=== PATIENT | male | born 1960 | race African-American/Black ===

== ENCOUNTER → 2019-01-14 | Outpatient (CLI) | payer BC ==
[2015-01-26 10:07] VITALS: BP 129/89
[~2019-01-14] MED LIST: ALBU2.5V8 IH; BUDE10.2 IH; CYCL10TA2 PO; DOCU-109 PO; GLIM4TAB4 PO; IBUP-1027 PO; IOHEXOL 180 MG/ML 10 ML VIAL. ONE; METF500T16 PO; OXYC-316 PO; PRAV40TA2 PO; RAMI10CA53 PO; SITA100T PO; methylPREDNISolone ACETATE 40 MG/ML VIAL. ONE; methylPREDNISolone ACETATE 80 MG/ML VIAL. ONE
--- NOTE | 2019-01-14 21:18 | PAIN ---
DATE OF SERVICE: 01/14/2019 INITIAL CONSULTATION FOR PAIN CLINIC CHIEF COMPLAINT: Low back and right lower extremity pain. HISTORY OF PRESENT ILLNESS: This is a 58-year-old male who presents with history of pain in the low back, right lower extremity since about August, about 5 months, not a result of any specific injury or action he is aware of, but he had some tree limbs I think he was cleaning up in his backyard, did a lot of extra work around the house, lifting and moving, bending and has had significant pain in the low back, in the right gluteus and then mostly in the right anterior thigh, which was new for him. The patient did have surgery on his lumbar spine in 2003 and then again in 2014. He reports the pain is much different than that now and anterior thighs on the right side, was on the left side at that time. The patient reports the pain is constant, sharp, throbbing, stabbing with numbness and tingling into the right lower extremity to the medial knee and medial lower leg as well. The patient reported it awakens him from sleep at least 2-3 times a night, does not affect his bowel or bladder control, but does affect his ability to walk and work as well. The patient takes Motrin, have decreased the pain significantly by about 90% for about 5-6 hours. The patient reports he has had physical therapies, he has tried chiropractic treatment exercises currently doing, but nothing recently. The patient describes the pain as constant, throbbing with numbness. The patient rates his disability from 0-10, 10 being the worst, is a 7 with family home responsibilities and sexual behavior, 9 with recreation, 6 with social activity and self-care, 5 with occupational activities and 3 with life support activities. The patient did have a MRI scan of the lumbar spine showing some significant broad-based disk protrusion at L5-S1 without impingement on the canal, broad-based disk protrusion at L4-L5 as well as and broad-based protrusion at right paracentral protrusion at L3-L4 tapering the canal to 7 mm with posterior lymphomatosis, disk extending into the right foramina causing moderate to severe right foraminal stenosis, abutting the exiting right L3 nerve root. PAST MEDICAL HISTORY: Significant for hypertension, diabetes, obesity, asthma. PREVIOUS SURGERY: Include lumbar decompression in 2003, as well as 2014 and a hiatal hernia repair in 1993. CURRENT MEDICATIONS: Include Tylenol and ibuprofen. SOCIAL HISTORY: The patient drinks alcohol maybe 2 drinks a week at the most. Does not smoke, does not use any illegal, illicit or recreational drugs. 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 FAMILY HISTORY: Significant for diabetes. REVIEW OF SYSTEMS: The patient's review of systems is positive for those items mentioned in history of present illness. All systems reviewed and otherwise negative. It is complete, full and well documented on the patient's chart. PHYSICAL EXAMINATION: VITAL SIGNS: The patient's blood pressure is 149/99, pulse is 87, respirations 18, temperature is 98.8 degrees Fahrenheit, height 6 feet 1 inch and weight 345 pounds. GENERAL: The patient is awake, alert, oriented, appropriate, very pleasant demeanor. HEENT: Head is normocephalic, atraumatic. Extraocular movements are intact and symmetrical. Oral cavity: Mucous membranes moist and pink. Dentition is intact. NECK: Shows anterior throat supple without palpable lymphadenopathy noted. Swallow reflex symmetrical. CHEST: Shows normal on inspection. Breath sounds clear to auscultation bilaterally. HEART: Shows S1, S2 clear. No murmurs auscultated. ABDOMEN: Soft, nontender, nondistended. No palpable organomegaly is noted. No rebound or guarding demonstrated. BACK: Shows spine grossly in the midline. Normal appearing thoracic kyphosis and some minor flattening of lumbar lordotic curvature with well-healed surgical scar noted in the lumbar distribution. Lumbar paraspinous muscle shows symmetrical on inspection, on palpation shows some moderate tenderness diffusely bilaterally going diffusely without radiation. The patient has good rotational motion of lumbar spine, both laterally as well as extension and flexion. No tenderness over the sacrum or sacroiliac regions or the spinous processes. EXTREMITIES: Lower extremities show deep tendon reflexes at 1+ in the patellar and tendo-calcaneus tendons. Motor exam is strong with approximately 4 on a scale of 5 in the right and 5/5 on the left dorsiflexion, extension, quadriceps and hamstring flexion. Peripheral pulses are 1+ posterior tibia. No peripheral edema is noted bilaterally. Straight leg raise noted to be positive on the right at about 35 degrees, but negative on the left. The patient will stand, stand on his toes without difficulty or loss of balance. The patient is not using any assistive devices to ambulate and does appear to favor the right lower extremity slightly with favoring it with favoring limp. The patient's skin shows warm and dry, good turgor. No edema. No sores, rashes or bruising throughout. IMPRESSION: 1. This is a 58-year-old male with long history of low back pain, worse over the past 5 months and status post 2 previous lumbar surgeries with radicular pain now in the right lower extremity in L3-L4 dermatomal distribution. 2. Hypertension. 3. Diabetes. 4. Obesity. PLAN: Options were discussed with the patient including conservative medical management, physical therapies, and interventional techniques. We would like to pursue interventional techniques. He has done well with these in the past. We discussed a lumbar epidural steroid injection using description as well as anatomical models to describe the procedure. Risks were then discussed including, but not limited to bleeding, infection, possibility of epidural hematoma, subsequent neurological compromise, dural puncture, headaches, spinal cord and/or nerve damage, side effects of steroid medication and poor results regarding pain control. The patient understands and wished to proceed. The patient will return to clinic in approximately 2 weeks for followup. He was counseled on return appointment, activity level and side effects to be aware of. DIAGNOSES: Lumbar radiculopathy with lumbar degenerative disk disease and lumbar spinal stenosis and lumbar herniated disk. PROCEDURE: Lumbar epidural steroid injection, translaminar approach at the L3-L4 level using C-arm fluoroscopic guidance under sterile prep and drape using local anesthetic. MEDICATION INJECTED: A total of 120 mg Depo-Medrol plus 10 mL of preservative-free normal saline and 2 mL of contrast. CONDITION AT DISCHARGE: Stable. The patient tolerated procedure well, had no complications. ALESSANDRO GREGG MD DR: CECE/vanna JOB#: [id number] / [id number] Dwight Silva MD
== END ==
LOC: PNCL 08:53
PROVIDERS: ATTEND Anesthesiology
DX: M51.16 Intervertebral disc disorders with radiculopathy, lumbar region (principal); M48.061 Spinal stenosis, lumbar region without neurogenic claudication; I10 Essential (primary) hypertension; E11.9 Type 2 diabetes mellitus without complications; E66.9 Obesity, unspecified; J45.909 Unspecified asthma, uncomplicated; Z98.890 Other specified postprocedural states; Z72.89 Other problems related to lifestyle; Z79.84 Long term (current) use of oral hypoglycemic drugs
CPT/HCPCS: 62323; J1030; J1040; Q9965

== ENCOUNTER → 2019-01-28 | Outpatient (CLI) | payer BC ==
[2015-01-26 10:07] VITALS: BP 129/89
[~2019-01-28] MED LIST changes: -IOHEXOL 180 MG/ML 10 ML VIAL. ONE; -methylPREDNISolone ACETATE 40 MG/ML VIAL. ONE; -methylPREDNISolone ACETATE 80 MG/ML VIAL. ONE
--- NOTE | 2019-01-28 15:49 | PAIN ---
DATE OF SERVICE: 01/28/2019 PROGRESS NOTE FOR PAIN CLINIC DIAGNOSES: Lumbar radiculopathy with lumbar degenerative disk disease, lumbar spinal stenosis, lumbar herniated disk, and post-lumbar laminectomy syndrome. HISTORY OF PRESENT ILLNESS: The patient is a 58-year-old male who returns for followup status post lumbar epidural steroid injection x 1. The patient reports about 95% improvement in his low back and right lower extremity pain. The patient reports the pain is almost completely gone. It is completely gone out of his leg and some minor pain in the posterior hip on the right side and occasionally on the left side. The patient reports that he has been increasing his activity with greater ease and comfort, walking greater distances, doing work activities, household activities, traveling, able to sleep without difficulty. He is able to get up out of bed quickly, changing positions without difficulty and is very pleased with his progress. The patient reports the pain is stable. He is doing quite well. The patient reports it is a dull ache in the low back and hip, but not into the leg anymore. The patient reports his pain at its worst in the past week is 2, 1 on average, 1 at its least and is a 1/10 today. The patient reports no new motor or sensory deficits, no new bowel or bladder incontinence or other complaints. He is very pleased with his progress. PHYSICAL EXAMINATION: VITAL SIGNS: The patient's blood pressure is 133/83, pulse 88, respirations 18, temperature is 98.6 degrees Fahrenheit, height is 6 feet 1 inch, weight is 336 pounds. GENERAL: The patient is awake, alert, oriented, appropriate, very pleasant demeanor. HEENT: Shows normocephalic, atraumatic. Extraocular movements are intact and symmetrical. Oral cavity: Mucous membranes moist and pink. Dentition is intact. NECK: Shows anterior throat supple without palpable lymphadenopathy noted. Swallow reflex symmetrical. CHEST: Shows normal on inspection. Breath sounds are clear bilaterally. HEART: Shows S1, S2 clear. No murmurs auscultated. ABDOMEN: Soft, nontender, nondistended. BACK: Shows spine grossly in the midline. Normal appearing thoracic kyphosis and lumbar lordotic curvature slightly flattened. Lumbar paraspinous muscle shows symmetrical on inspection, on palpation shows some moderate tenderness diffusely bilaterally going diffusely without radiation. The patient has good rotational motion of lumbar spine without difficulty or pain reported. EXTREMITIES: Lower extremities show deep tendon reflexes 1+ patellar and tendo calcaneus tendons. Motor exam is approximately 4 on a scale of 5 right dorsiflexion, extension, 5/5 on the left. Peripheral pulses are 1+ posterior tibia. No peripheral edema is noted. Options were discussed with the patient. The patient's old chart was reviewed as his current medication regimen updated. Current review of systems updated today as well. We will hold on any further injections at this time by the patient's choice as he is doing quite a bit better, encouraged him to increase his activity as tolerated, also doing strengthening and stretching exercises as instructed. The patient will follow up at this time on as needed basis. ALESSANDRO GREGG MD DR: CECE/vanna JOB#: [id number] / [id number]
== END | disposition home or self-care (01) ==
LOC: PNCL 08:32
PROVIDERS: ATTEND Anesthesiology
DX: M51.16 Intervertebral disc disorders with radiculopathy, lumbar region (principal); M48.061 Spinal stenosis, lumbar region without neurogenic claudication; M96.1 Postlaminectomy syndrome, not elsewhere classified
CPT/HCPCS: G0463

== ENCOUNTER → 2019-03-10 | Outpatient (CLI) | payer BC ==
[2015-01-26 10:07] VITALS: BP 129/89
[~2019-03-10] MED LIST changes: +IOHEXOL 180 MG/ML 10 ML VIAL. ONE; +methylPREDNISolone ACETATE 40 MG/ML VIAL. ONE; +methylPREDNISolone ACETATE 80 MG/ML VIAL. ONE
--- NOTE | 2019-03-10 14:29 | PAIN ---
DATE OF SERVICE: 03/10/2019 PROGRESS NOTE FOR PAIN CLINIC DIAGNOSES: Lumbar radiculopathy with lumbar degenerative disk disease, lumbar spinal stenosis, post-lumbar laminectomy syndrome and lumbar herniated disk. HISTORY OF PRESENT ILLNESS: The patient is a 58-year-old male who returns for followup status post lumbar epidural steroid injection x 1, which was on 01/14/2019. The patient did very well with this with about a 95% improvement. The pain has been returning now. He has been doing increased work at home, doing some remodeling activities inside the home as well as some lifting, painting, decorating as well. The patient reports the pain is returning now in the low back, right leg and anterior thigh. The patient reports a 6-7 on a scale of 10 at its worst, 6 on average, 6 at its least and is a 6 today. The patient reports it is aching and dull in the back and radiating into the right anterior thigh, medial thigh, medial knee on the right side. Again worse with walking, standing, changing positions, better with sitting or lying down, does not awaken him from sleep at night. No new motor or sensory deficits, no new bowel or bladder incontinence or other complaints. PHYSICAL EXAMINATION: VITAL SIGNS: The patient's blood pressure 164/90, pulse 91, respirations 18, temperature 98.8 degrees Fahrenheit, height is 6 feet 1 inch, weight is 341 pounds. GENERAL: The patient is awake, alert, oriented, appropriate, very pleasant demeanor. HEENT: Shows normocephalic, atraumatic. Extraocular movements are intact and symmetrical. Oral cavity; mucous membranes moist and pink. Dentition is intact. NECK: Shows anterior throat supple without palpable lymphadenopathy noted. Swallow reflex is symmetrical. CHEST: Shows normal on inspection. Breath sounds clear bilaterally. HEART: Shows S1, S2 clear. No murmurs auscultated. ABDOMEN: Soft, nontender, nondistended. No palpable organomegaly is noted. No rebound or guarding demonstrated. BACK: Shows spine grossly in the midline. Normal appearing thoracic kyphosis, some minor flattening of lumbar lordotic curvature with well-healed surgical scar noted in the midline. Lumbar paraspinous muscle shows symmetrical on inspection, on palpation shows some moderate tenderness diffusely bilaterally, but only diffusely without significant radiation. EXTREMITIES: The patient's lower extremities show deep tendon reflexes 1+ in the patellar and tendo calcaneus tendons. Motor exam is approximately 4 on a scale of 5 with right dorsiflexion, extension, 5/5 on the left. Peripheral pulses are 1+ posterior tibia. No peripheral edema is noted bilaterally. Options were discussed with the patient. The patient's old chart was reviewed as his current medication regimen updated. Current review of systems updated today as well. We will proceed with a second in a series of lumbar epidural steroid injection today with fluoroscopic guidance. Risks were again discussed including, but not limited to bleeding, infection, possibility of epidural hematoma, subsequent neurologic compromise, dural puncture, headaches, spinal cord and/or nerve damage, side effects of steroid medication and poor results regarding pain control. The patient understands and wished to proceed. The patient will return to clinic in approximately 2 weeks for followup. He was counseled on return appointment, activity level and side effects to be aware of. DIAGNOSES: Lumbar radiculopathy with lumbar degenerative disk disease, lumbar spinal stenosis, lumbar herniated disk with lumbar post-laminectomy syndrome. PROCEDURE: Lumbar epidural steroid injection, translaminar approach at the L3-L4 level using C-arm fluoroscopic guidance under sterile prep and drape using local anesthetic. MEDICATION INJECTED: Total of 120 mg Depo-Medrol plus 10 mL of preservative-free normal saline and 2 mL of contrast. CONDITION AT DISCHARGE: Stable. The patient tolerated the procedure well, had no complications. ALESSANDRO GREGG MD DR: CECE/vanna JOB#: [id number] / [id number]
== END ==
LOC: PNCL 10:31
PROVIDERS: ATTEND Anesthesiology
DX: M51.16 Intervertebral disc disorders with radiculopathy, lumbar region (principal); M48.061 Spinal stenosis, lumbar region without neurogenic claudication; M96.1 Postlaminectomy syndrome, not elsewhere classified
CPT/HCPCS: 62323; J1030; J1040; Q9965